=== PATIENT | female | born 1960 | race Caucasian/White ===

== ENCOUNTER 2023-06-30 17:54 | Emergency (ER) | payer BC, SELFPAY ==
[2023-06-30] VITALS (13 sets, daily range): BP systolic 104–160; BP diastolic 75–101; PULSE 81–125
[2023-06-30 18:41] LABS: % Basophils 1.2 % (0-2); % Eosinophils 3.5 % (0-6); % Lymphocytes 36.3 % (20.5-51.1); % Monocytes 8.1 % (1.7-9.3); % Neutrophils 50.9 % (42.2-75.2); Absolute Basophils 0.1 10^3/uL (0-0.2); Absolute Eosinophils 0.2 10^3/uL (0-0.7); Absolute Lymphocytes 2.1 10^3/uL (1.2-3.4); Absolute Monocytes 0.5 10^3/uL (0.1-0.6); Absolute Neutrophils 2.9 10^3/uL (1.4-6.5); Hematocrit 39.2 % (37.0-47.0); Mean Corp Hgb Conc. 35.7 g/dL (33.0-37.0); Mean Corpuscular Hgb 31.6 pg (27.0-31.0); Mean Corpuscular Volume 88.5 fL (81.0-99.0); Mean Platelet Volume 9.2 fL (7.4-10.4); Nucleated Red Blood Cells % 0 %; Platelet Count 301 10^3/uL (130-400); Red Blood Cell Count 4.43 10^6/uL (4.20-5.40); Red Cell Dist. Width 12.4 % (11.5-14.5); White Blood Cell Count 5.7 10^3/uL (4.8-10.8)
[2023-06-30 18:49] LABS: ALT (SGPT) 27 U/L (0-35); AST (SGOT) 28 U/L (14-36); Albumin 4.6 g/dl (3.5-5.0); Alkaline Phosphatase 70 U/L (38-126); Blood Urea Nitrogen 22 mg/dl (7-17); Calcium 9.9 mg/dl (8.4-10.2); Carbon Dioxide 26 mmol/L (22-30); Chloride 104 mmol/L (98-107); Glucose 114 mg/dl (70-99); Sodium 136 mmol/L (135-145); Total Bilirubin 0.9 mg/dl (0.2-1.3); Total Protein 7.3 g/dl (6.3-8.2); eGFR > 60.00
--- NOTE | 2023-06-30 18:53 | ED.GENMED ---
History of Present Illness
General
Chief Complaint: Heart Rate Problem
Source: patient
Exam Limitations: none
Time Seen by Provider: 06/30/23 18:28
Nursing documentation reviewed up to this point in time: agreed with
Travel History
Have you had any contact with someone who has COVID-19?: No
Do you have any symptoms of coronavirus? Fever > 100 degrees, chills, cough, shortness of breath, sore throat, loss of taste or smell, muscle aches, or headache?: No
History of Present Illness
History of Present Illness:
62-year-old female with no significant past medical history states hour ago at home she stood up felt flushed in the face looked at her Apple Watch and her heart rate was in the 150s. She felt dizzy and like she had a 'head an.' This episode
lasted about 4 minutes. She is asymptomatic now.
Patient started a weight loss program 2 weeks ago called [facility] [employer] [facility]. No carbs, increase the protein and veggies
Past History
Past History
ED Past Medical History: None
ED Past Surgical History: None
Social History
Tobacco: Non-smoker
Alcohol: Daily
Drug: None
Personal:
Living: with family
Family History
Family History: CAD; Negative Early CAD
Phy Exam
Physical Exam
Physical Exam:
GENERAL: No acute distress. A&Ox3.
CONSTITUTIONAL: Afebrile.
EYES: PERRL, conjunctivae normal
ENMT: moist mucus membranes, Pharynx nl
RESPIRATORY: Regular respirations, nonlabored, lungs clear.
CARDIOVASCULAR: Regular rate and rhythm, no murmurs, no rubs.
GI: Soft, nontender, normal BS
MUSCULOSKELETAL: Moves with ease. Well perfused.
SKIN: Warm, dry, pink
PSYCH: Normal mood and affect. Well kept, interactive and appropriate
NEUROLOGIC: Awake, alert and oriented. No focal neurological deficits
Course
Orders/Labs/Results
Orders:
Orders
06/30/23 18:00
Electrocardiogram (*1) Urgent
Reason for Study: Tachycardia
EKG- Treatment ONCE
06/30/23 18:28
Complete Blood Count/With Diff Urgent
Comprehensive Metabolic Panel Urgent
06/30/23 18:29
Orthostatic VS- Treatment ONCE
06/30/23 18:56
0.9% Sodium Chloride 1000 ml [Nss] 1,000 ml IV BOLUS
06/30/23 19:42
Urinalysis Reflex To Culture Urgent
Date Specimen was Collected: 06/30/23
Time Specimen was Collected: 19:29
06/30/23 19:[address] Non Medication Order As Directed
Physician Order: Repeat orthostatics
Above order entered?: Yes
Abnormal Lab Results
06/30/23
18:28
MCH 31.6 H pg
(27.0-31.0)
BUN 22 H mg/dl
(7-17)
Glucose 114 H mg/dl
(70-99)
06/30/23 18:28
06/30/23 18:28
Vital Signs
Initial and Last Documented VS:
Initial Vital Signs
Temp Pulse Resp BP Pulse Ox
97.5 F 97 18 160/101 96
06/30/23 17:55 06/30/23 17:55 06/30/23 17:55 06/30/23 17:55 06/30/23 17:55
Last Documented Vital Signs
Temp Pulse Resp BP Pulse Ox
97.5 F 74 14 110/75 95
06/30/23 17:55 06/30/23 21:30 06/30/23 21:30 06/30/23 21:00 06/30/23 21:30
MDM/Problems Addressed
Differential Diagnosis Includes:
orthostasis, dehydration, SVT
MDM/Problems Addressed:
62-year-old female with no significant past medical history states hour ago at home she stood up felt flushed in the face looked at her Apple Watch and her heart rate was in the 150s. She felt dizzy and like she had a 'head an.' This episode
lasted about 4 minutes. She is asymptomatic now.
Patient recently started a weight loss program 2 weeks ago called [employer] [facility]. No carbs, increase the protein and veggies
06/30/2023 1853 PM
CBC normal
CMP with no clinically significant abnormality
EKG NSR
Positive Orthostatics: felt 'something not right' in her head when she sits up
UA negative
06/30/2023 2004 PM
After liter of fluid orthostatics repeated.
Heart rate on monitor has been in the 80's entire stay
06/30/20232056 PM
After 1 L IV fluids, orthostatics much improved, pt asymptomatic
Plan: Cardiology follow up may need Holter monitor
Stable for discharge, pt comfortable going home
*EKG
EKG Intrepretation Date: 06/30/23
Interpretation: normal
Rate: normal
Rhythm: sinus
Cushing: normal axis
Interval: normal interval
QRS Pattern: normal QRS
Ischemia: no ischemia
*Critical Care Note
Total Time (30-74mins, 75-104mins- exclusive of procedures): Not Applicable
ED Attending Note
-
Portions of this chart may have been created with voice recognition software.� Occasional wrong word or��sound alike� substitutions may have occurred due to the inherent limitations of voice recognition software.
Discharge Plan
Departure
Patient Disposition: Home (Routine Discharge)
Date of Disposition: 06/30/23
Time of Disposition: 20:58
Patient with high blood pressure during this ER visit?: No
Condition: Good
Discharge Problem:
History of tachycardia, Mild dehydration
Instructions: Tachycardia, Dehydration, Adult ED
Prescriptions:
No Action
aspirin 325 MG tablet
325 mg PO ONCE
multivitamin with folic acid [Tab-A-Joan] 1 TABLET tablet
1 tab PO DAILY
Zantac
1 tab PO DAILY
Patient Comments:
patient does not recall dosage
Referrals:
Annette Smith MD [Family Provider] -
Daron Crespo MD [Active] - As needed
Activity Restrictions/Additional Instructions:
Your blood work shows you are mildly dehydrated. Drink plenty of fluids.
After your IV fluid infused, your vital signs are much better
I gave you the name of a medical equipment sales to follow-up with, if you have any further episodes of fast heart rate, call make an appoint with a medical equipment sales for more thorough cardiology evaluation.
Return here if you have a rapid heartbeat that does not get better within 10 minutes, if it is associated with sweating, nausea or vomiting, feeling faint or dizzy
Interventions
Interventions:
*Risk Screen - Suicide Last Done: 06/30/23 21:36
*General Assessment Last Done: 06/30/23 21:36
*Neglect/Abuse Screening Last Done: 06/30/23 21:36
*ED COVID-19 Vaccine History Last Done: 06/30/23 21:36
*Nursing Disposition Last Done: 06/30/23 21:36
ED- Cardiac Assessment Last Done: 06/30/23 20:49
ED- Pulmonary Assessment Last Done: 06/30/23 20:49
Discharge Date and Time
Discharge Date/Time: 06/30/23 21:37
[2023-06-30] MEDS: NSS 1000 IV (18:59)
[2023-06-30 19:54] LABS: Urine Albumin Negative (Neg - Trace); Urine Bilirubin Negative (Negative); Urine Character Clear (Clear); Urine Color Straw; Urine Glucose Negative (Negative); Urine Ketone Negative (Negative); Urine Leukocyte Negative (Negative); Urine Nitrite Negative (Negative); Urine Occult Blood Negative (Negative); Urine Urobilinogen Negative (Neg - 1+)
== END 2023-06-30 21:37 | disposition home or self-care (01) ==
LOC: EMR 17:54
PROVIDERS: Registered Nurse; EMERGENCY PHYSICIAN Emergency Medicine; FAMILY PHYSICIAN Internal Medicine
DX: E86.0 Dehydration (principal); Z86.79 Personal history of other diseases of the circulatory system
CPT/HCPCS: 99284; 96360; 80053; 81003; 85025; 93005